=== PATIENT | female | born 2000 | race American Indian/Alaskan Native ===

== ENCOUNTER 2018-11-13 23:26 | Emergency (ER) | payer OTHER ==
--- NOTE | 2018-11-13 23:38 | Emergency Department Report ---
HPI - General Time Seen by Provider: 11/13/18 23:33 - HPI HPI: 18-year-old AA female presents to the emergency department via EMS from home after she passed out after having an emotional discussion with her boyfriend about moving about one hour away to [place]. The boyfriend noticed her coming down the stairs playing on her phone when she started passing out and slowly fell to the ground. Patient thinks that she might have hit her head and also complains of some right hip pain. The boyfriend says that she was unconscious for about 30 seconds and then it took about 5 minutes to get back to her normal mental status. He said he noticed a little bit of jerking of her legs while she was unconscious. No past medical history. She did not take anything for her symptoms prior to presentation. ED Review of Systems ROS: Stated complaint: SYNCOPE Other details as noted in HPI Comment: All other systems reviewed and negative Constitutional: denies: chills, fever Eyes: denies: eye pain, vision change ENT: denies: ear pain, throat pain Respiratory: denies: cough, shortness of breath Cardiovascular: syncope. denies: chest pain Gastrointestinal: denies: abdominal pain, vomiting Genitourinary: denies: dysuria, discharge Musculoskeletal: arthralgia. denies: back pain Skin: denies: rash, lesions Neurological: headache. denies: weakness Physical Exam - Physical Exam Physical Exam: GENERAL: The patient is well-developed well-nourished. HEENT: Normocephalic. Atraumatic. Patient has moist mucous membranes. EYES: Extraocular motions are intact. Pupils are equal and reactive to light bilaterally. No nystagmus. NECK: Supple. Trachea is midline. CHEST/LUNGS: Clear to auscultation. There is no respiratory distress noted. HEART/CARDIOVASCULAR: Regular. There is no tachycardia. There is no obvious murmur. ABDOMEN: Abdomen is soft, nontender. Patient has normal bowel sounds. There is no abdominal distention. SKIN: Skin is warm and dry. NEURO: The patient is awake, alert, and oriented. The patient is cooperative. The patient has no focal neurologic deficits. The patient has normal speech. Cranial nerves II through XII grossly intact. MUSCULOSKELETAL: There is no tenderness or deformity. There is no limitation range of motion. There is no evidence of acute injury. ED Medical Decision Making - Lab Data Result diagrams: 11/13/18 23:33 11/13/18 23:30 - EKG Data -: EKG Interpreted by Me EKG shows normal: sinus rhythm, axis, intervals, QRS complexes (q waves to anterior leads), ST-T waves Rate: normal - EKG Data When compared to previous EKG there are: previous EKG unavailable Interpretation: other (sinus rhythm, q waves to septal leads, no STEMI) - Radiology Data Radiology results: report reviewed, image reviewed interpreted by me: X-ray of the right hip does not show any fracture, dislocation or any acute process. PROCEDURE: CT HEAD/BRAIN WO CON TECHNIQUE: Computerized tomography of the head was performed without contrast material. HISTORY: Syncope COMPARISONS: None . FINDINGS: Skull and scalp: Normal . Paranasal sinuses: Normal . Ventricles and subarachnoid spaces: Normal . Cerebrum: No evidence of hemorrhage, acute infarction or mass . Cerebellum and brainstem: No evidence of hemorrhage, acute infarction or mass . Vasculature: Normal . Other: None . ASPECTS: 10 IMPRESSION: Normal Examination . This document is electronically signed by Tanya Long DO., November 14 2018 03:05:08 AM ET Transcribed By: [facility] Dictated By: TANYA LONG MD Electronically Authenticated By: TANYA LONG MD Signed Date/Time: 11/14/18 0307 - Medical Decision Making This patient presents to the emergency department after having some type of syncopal episode. Since being in the emergency department, she is awake and alert, oriented, and in no acute distress. She does not have any focal, motor or sensory deficits and her cranial nerves are intact. She complains of a mild headache and right hip pain. The right hip xray does not show any fracture, dislocation, or any other acute process. CT scan of the head does not show any bleed, shift, mass, ischemia, or any other acute process. EKG did not show any signs of ST elevation [place], ischemia or dysrhythmia. Labs are unremarkable including CBC, BMP, TSH, troponin. Prior to discharge, the patient was seen ambulatory in the emergency department and appears and feels stable. She has been given primary care referrals. She will return to the ER with any worsening of her symptoms or any acute distress. - Differential Diagnosis orthostatic hypotension, vasovagal, TIA, dysrythmia Critical Care Time: No Critical care attestation.: If time is entered above; I have spent that time in minutes in the direct care of this critically ill patient, excluding procedure time. ED Disposition Clinical Impression: Syncope Qualifiers: Syncope type: unspecified Qualified Code(s): R55 - Syncope and collapse Disposition: DC-01 TO HOME OR SELFCARE Is pt being admited?: No Condition: Stable Instructions: Syncope (ED) Additional Instructions: Please follow up with a primary care physician in the next few days. Return to the emergency Department with any further episodes of passing out, worsening of your symptoms or any acute distress. Referrals: [facility] [Outside] - 2-3 Days DAVID IBARRA MD [Staff Physician] - 2-3 Days Time of Disposition: 03:15
[2018-11-14 00:11] LABS: Hematocrit 36.9 % (30.3-42.9); Hemoglobin 12.2 gm/dl (10.1-14.3); Mean Corpuscular HGB Conc 33 % (30-34); Mean Corpuscular Volume 85 fl (79-97); Platelet Count 228 K/mm3 (140-440); Red Blood Count 4.33 M/mm3 (3.65-5.03); Red Cell Distribution Width 14.5 % (13.2-15.2)
[2018-11-14 01:22] LABS: BUN/Creatinine Ratio 11; Blood Urea Nitrogen 9 mg/dL (7-17)
[2018-11-14 01:23] LABS: Calcium 9.8 mg/dL (8.4-10.2)
[2018-11-14 02:17] LABS: Total Cells Counted 100
[2018-11-14 02:18] LABS: Anisocytosis 1+; Basophils % (Manual) 0 % (0.0-1.8); Large Platelets 1+; Platelet Estimate Consistent w Auto; Poikilocytosis 1+
--- NOTE | 2018-11-14 02:49 | XRay Report ---
PROCEDURE: XR HIP 2-3V RT TECHNIQUE: Right hip radiographs, 2 views. HISTORY: right hip pain COMPARISONS: None FINDINGS: Fracture (s) and/or Dislocation(s): None Joint space(s): Normal Soft tissues: Normal Bone mineralization: Normal Foreign bodies: None IMPRESSION: Normal Examination This document is electronically signed by Cecy Long DO., November 14 2018 02:47:25 AM ET
--- NOTE | 2018-11-14 03:07 | Cat Scan Report ---
PROCEDURE: CT HEAD/BRAIN WO CON TECHNIQUE: Computerized tomography of the head was performed without contrast material. HISTORY: Syncope COMPARISONS: None . FINDINGS: Skull and scalp: Normal . Paranasal sinuses: Normal . Ventricles and subarachnoid spaces: Normal . Cerebrum: No evidence of hemorrhage, acute infarction or mass . Cerebellum and brainstem: No evidence of hemorrhage, acute infarction or mass . Vasculature: Normal . Other: None . ASPECTS: 10 IMPRESSION: Normal Examination . This document is electronically signed by Cecy Long DO., November 14 2018 03:05:08 AM ET
[2018-11-14 04:44] LABS: Hemolysis Index 7
[2018-11-15 18:02] VITALS: BP 129/91
== END 2018-11-14 03:31 | disposition home or self-care (01) ==
LOC: ED 23:26
DX: R55 Syncope and collapse (principal); M25.551 Pain in right hip
CPT/HCPCS: 36415; 70450; 80048; 84443; 84484; 84703; 85007; 85025; 93005; 93010

== ENCOUNTER 2019-02-21 08:06 | Emergency (ER) | payer SELFPAY ==
--- NOTE | 2019-02-21 09:07 | Emergency Department Report ---
ED General Adult HPI - General Chief complaint: Eye Problems Stated complaint: LT EYE SWOLLEN Time Seen by Provider: 02/21/19 08:54 Source: patient Mode of arrival: Ambulatory Limitations: No Limitations - History of Present Illness Initial comments: She presents to the emergency department with a chief complaint of left eye swelling and itchiness. Patient denies fever or cold. - Related Data Previous Rx's Medication Instructions Recorded Last Taken Type Cetirizine HCl [Zyrtec 10mg tab] 10 mg PO DAILY #30 tablet 02/21/19 Unknown Rx Allergies Allergy/AdvReac Type Severity Reaction Status Date / Time No Known Allergies Allergy Unverified 11/13/18 23:36 ED Review of Systems ROS: Stated complaint: LT EYE SWOLLEN Other details as noted in HPI Constitutional: denies: chills, fever Eyes: denies: eye discharge, vision change ENT: denies: ear pain, throat pain Respiratory: denies: cough, shortness of breath, wheezing Cardiovascular: denies: chest pain, palpitations Endocrine: no symptoms reported Gastrointestinal: denies: abdominal pain, nausea, diarrhea Genitourinary: denies: urgency, dysuria, discharge Musculoskeletal: denies: back pain, joint swelling, arthralgia Skin: denies: rash, lesions Neurological: denies: headache, weakness, paresthesias Psychiatric: denies: anxiety, depression Hematological/Lymphatic: denies: easy bleeding, easy bruising ED Past Medical Hx - Past Medical History Previous Medical History?: No - Surgical History Past Surgical History?: No - Social History Smoking Status: Never Smoker Substance Use Type: Alcohol - Medications Home Medications: Home Medications Medication Instructions Recorded Confirmed Last Taken Type Cetirizine HCl [Zyrtec 10mg tab] 10 mg PO DAILY #30 tablet 02/21/19 Unknown Rx ED Physical Exam - General Limitations: No Limitations General appearance: alert, in no apparent distress - Head Head exam: Present: atraumatic, normocephalic - Eye Eye exam: Present: PERRL, EOMI, other ( cobblestone palpebral conjunctival; the patient also has a hordeolum of the upper left eyelid) - ENT ENT exam: Present: mucous membranes moist - Neck Neck exam: Present: normal inspection - Neurological Exam Neurological exam: Present: alert, oriented X3, CN II-XII intact - Skin Skin exam: Present: warm, dry, intact, normal color. Absent: rash ED Course Vital Signs 02/21/19 08:08 Temperature 98.1 F Pulse Rate 78 Respiratory 20 Rate Blood Pressure 125/86 O2 Sat by Pulse 96 Oximetry Critical care attestation.: If time is entered above; I have spent that time in minutes in the direct care of this critically ill patient, excluding procedure time. ED Disposition Clinical Impression: Hordeolum external, Allergic conjunctivitis Disposition: - TO HOME OR SELFCARE Is pt being admited?: No Does the pt Need Aspirin: No Condition: Stable Instructions: Stye (ED), Conjunctivitis (ED) Additional Instructions: return if worse Prescriptions: Cetirizine HCl [Zyrtec 10mg tab] 10 mg PO DAILY #30 tablet Referrals: ALMITA SCOTT MD [Primary Care Provider] - 3-5 Days [facility] [Provider Group] - 3-5 Days [facility] [Provider Group] - 3-5 Days Time of Disposition: 09:10
[2019-02-21 09:22] VITALS: BP 121/80
== END 2019-02-21 09:20 | disposition home or self-care (01) ==
LOC: ED 08:06
DX: H00.016 Hordeolum externum left eye, unspecified eyelid (principal); H10.12 Acute atopic conjunctivitis, left eye
CPT/HCPCS: 99282

== ENCOUNTER 2019-07-25 08:05 | Emergency (ER) | payer SELFPAY | END 2019-07-25 11:34 | disposition left against medical advice (07) | LOC: ED 08:05 | DX: R00.2 Palpitations (principal) | CPT/HCPCS: 99281 ==

== ENCOUNTER 2021-11-22 18:44 | Emergency (ER) | payer SELFPAY ==
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
[2021-11-22 21:08] VITALS: BP 120/80
== END 2021-11-22 21:10 | disposition home or self-care (01) ==
LOC: ED 18:44
DX: M25.561 Pain in right knee (principal); Z91.02 Food additives allergy status
CPT/HCPCS: 99282

== ENCOUNTER 2021-12-02 21:32 | Emergency (ER) | payer SELFPAY ==
--- NOTE | 2021-12-02 23:38 | XRay Report ---
RIGHT KNEE 4 VIEW(S) INDICATION / CLINICAL INFORMATION: pain - fall COMPARISON: None available. FINDINGS: BONES / JOINT(S): No acute fracture or subluxation. No significant arthritis. SOFT TISSUES: No significant abnormality. ADDITIONAL FINDINGS: None. IMPRESSION: 1.No evidence of acute osseous pathology. Signer Name: Nathan Valdez II, MD Signed: 12/02/2021 11:33 PM Workstation Name: [id number]
--- NOTE | 2021-12-03 01:46 | Emergency Department Report ---
ED Lower Extremity HPI - General Chief Complaint: Extremity Injury, Lower Stated Complaint: RT LEG INJURY Source: patient Mode of arrival: Ambulatory Limitations: No Limitations - History of Present Illness Initial Comments: Patient is a 21-year-old -Luxembourger female with no past medical history who presents to the ED with complaint of acute onset persistent right knee pain after she twisted her right knee and fell down 8 hours ago. Patient states that the pain is worse with any ambulation. Patient states that she tried to take hptd-nul-tyrodme medications with no relief. Patient denies dizziness, syncope, seizures, numbness and tingling or weakness of lower extremities bilaterally, low back pain, hip pain, chest pain, shortness of breath, headache, neck pain, change in vision abdominal pain. MD Complaint: knee injury (RIGHT) -: Sudden, hour(s) (8) Injury: Knee: Right (Right knee pain) Type of Injury: eversion Place: street/outdoors Improves With: nothing Worsens With: weight bearing, movement, palpation Context: fall, walking Associated Symptoms: snap/pop sensation, able to partially bear weight. denies: swelling, numbness, tingling, unable to bear weight, ambulatory - Related Data Previous Rx's Medication Instructions Recorded Last Taken Type Cetirizine HCl [Zyrtec 10mg tab] 10 mg PO DAILY #30 tablet 02/21/19 Unknown Rx Ibuprofen [Motrin] 600 mg PO Q8H PRN #20 tablet 11/22/21 Unknown Rx Ibuprofen [Motrin] 600 mg PO Q8H PRN #30 tablet 12/03/21 Unknown Rx Allergies Allergy/AdvReac Type Severity Reaction Status Date / Time coconut Allergy Mild Dizziness Verified 11/22/21 18:53 ED Review of Systems ROS: Stated complaint: RT LEG INJURY Other details as noted in HPI Constitutional: denies: chills, fever Eyes: denies: eye pain, eye discharge, vision change ENT: denies: ear pain, throat pain Respiratory: denies: cough, shortness of breath, wheezing Cardiovascular: denies: chest pain, palpitations Endocrine: no symptoms reported Gastrointestinal: denies: abdominal pain, nausea, diarrhea Genitourinary: denies: urgency, dysuria, discharge Musculoskeletal: arthralgia (Right knee pain). denies: back pain, joint swelling Skin: denies: rash, lesions Neurological: denies: headache, weakness, paresthesias Psychiatric: denies: anxiety, depression Hematological/Lymphatic: denies: easy bleeding, easy bruising ED Past Medical Hx - Social History Smoking Status: Never Smoker Substance Use Type: None - Medications Home Medications: Home Medications Medication Instructions Recorded Confirmed Last Taken Type Cetirizine HCl [Zyrtec 10mg tab] 10 mg PO DAILY #30 tablet 02/21/19 Unknown Rx Ibuprofen [Motrin] 600 mg PO Q8H PRN #20 tablet 11/22/21 Unknown Rx Ibuprofen [Motrin] 600 mg PO Q8H PRN #30 tablet 12/03/21 Unknown Rx ED Physical Exam - General Limitations: No Limitations General appearance: alert, in no apparent distress - Head Head exam: Present: atraumatic, normocephalic, normal inspection - Eye Eye exam: Present: normal appearance, PERRL, EOMI Pupils: Present: normal accommodation - ENT ENT exam: Present: normal exam, normal orophraynx, mucous membranes moist, TM's normal bilaterally, normal external ear exam - Neck Neck exam: Present: normal inspection, full ROM. Absent: tenderness - Respiratory Respiratory exam: Present: normal lung sounds bilaterally. Absent: respiratory distress, wheezes, rhonchi, stridor, chest wall tenderness, accessory muscle use, decreased breath sounds, prolonged expiratory - Cardiovascular Cardiovascular Exam: Present: regular rate, normal rhythm, normal heart sounds. Absent: systolic murmur, diastolic murmur, rubs, gallop - GI/Abdominal GI/Abdominal exam: Present: soft, normal bowel sounds. Absent: tenderness, guarding, rebound, hyperactive bowel sounds, hypoactive bowel sounds, mass - Extremities Exam Extremities exam: Present: normal inspection, tenderness (Palpable right knee tenderness with limited range of motion due to pain), normal capillary refill. Absent: full ROM (Limited range of motion of right knee due to pain), pedal edema, joint swelling, calf tenderness - Back Exam Back exam: Present: normal inspection, full ROM. Absent: tenderness, CVA tenderness (L), muscle spasm, paraspinal tenderness - Neurological Exam Neurological exam: Present: alert, oriented X3, CN II-XII intact, normal gait, reflexes normal - Psychiatric Psychiatric exam: Present: normal affect, normal mood - Skin Skin exam: Present: warm, dry, intact, normal color. Absent: rash ED Course Vital Signs 12/02/21 22:44 Temperature 98.8 F Pulse Rate 71 Respiratory 18 Rate Blood Pressure 148/94 O2 Sat by Pulse 100 Oximetry ED Lower Extremity MDM - Radiology Data Radiology results: report reviewed, image reviewed [facility] [address] [place] [address] XRay Report Signed Patient: AMANDA PALMER MR#: [id number] : 2000 Acct:[id number] Age/Sex: 21 / F ADM Date: 12/02/21 Loc: ED Attending Dr: Ordering Physician: CHAVEZ DIEGO Date of Service: 12/02/21 Procedure(s): XR knee 3V RT Accession Number(s): [id number] cc: CHAVEZ DIEGO Fluoro Time In Minutes: RIGHT KNEE 4 VIEW(S) INDICATION / CLINICAL INFORMATION: pain - fall COMPARISON: None available. FINDINGS: BONES / JOINT(S): No acute fracture or subluxation. No significant arthritis. SOFT TISSUES: No significant abnormality. ADDITIONAL FINDINGS: None. IMPRESSION: 1.No evidence of acute osseous pathology. Signer Name: Rigo Valdez II, MD Signed: 12/02/2021 11:33 PM Workstation Name: [id number] Transcribed By: BERNARDINO Dictated By: RIGO VALDEZ II, MD Electronically Authenticated By: RIGO VALDEZ II, MD Signed Date/Time: 12/02/212332 DD/ 32 TD/TT: - Medical Decision Making This is a 21-year-old -Luxembourger female with no past medical history who presents to the ED with complaint of acute onset persistent right knee pain after she twisted her right knee and fell down 8 hours ago. Patient states that the pain is worse with any ambulation. Patient states that she tried to take [id number]-[id number] medications with no relief. In the ED, patient is alert and oriented x3 and is not in any distress. Right knee x-ray showed no acute fractures or subluxations. Patient symptoms are likely musculoskeletal and therefore the patient will discharge home on medications for pain and advised to follow-up with her primary care physician in 7 to 10 days for reevaluation. Patient advised return to the ED immediately if symptoms get worse. - Differential Diagnosis Knee fracture; knee sprain; knee contusion; muscle strain Critical care attestation.: If time is entered above; I have spent that time in minutes in the direct care of this critically ill patient, excluding procedure time. ED Disposition Clinical Impression: Sprain of right knee Qualifiers: Encounter type: initial encounter Involved ligament of knee: unspecified ligament Qualified Code(s): S83.91XA - Sprain of unspecified site of right knee, initial encounter Muscle strain of right knee Qualifiers: Encounter type: initial encounter Qualified Code(s): S86.911A - Strain of unspecified muscle(s) and tendon(s) at lower leg level, right leg, initial encounter Contusion of right knee Qualifiers: Encounter type: initial encounter Qualified Code(s): S80.01XA - Contusion of right knee, initial encounter Disposition: 01 HOME / SELF CARE / HOMELESS Is pt being admited?: No Does the pt Need Aspirin: No Condition: Stable Instructions: Contusion, Kpyd-ho-Xkjy, Knee Sprain, Adult, Slry-rb-Zwoh, Muscle Strain, Nzkt-bq-[id number] Additional Instructions: The right knee x-ray showed no acute fractures or subluxations. Therefore take medication with food, drink plenty of fluids and follow-up with your primary care physician in 7 to 10 days for reevaluation. Return to the ED immediately if symptoms get worse. Prescriptions: Ibuprofen [Motrin] 600 mg PO Q8H PRN #30 tablet PRN Reason: Pain Referrals: [facility] [Provider Group] - 7-10 days Forms: Work/School Release Form(ED) Time of Disposition: 01:47 Print Language: UKRAINIAN
[2021-12-03 06:02] VITALS: BP 141/92
== END 2021-12-03 02:21 | disposition home or self-care (01) ==
LOC: ED 21:32
DX: S83.91XA Sprain of unspecified site of right knee, initial encounter (principal); X58.XXXA Exposure to other specified factors, initial encounter; Y93.89 Activity, other specified; Y92.89 Other specified places as the place of occurrence of the external cause; Y99.8 Other external cause status
CPT/HCPCS: 99283

== ENCOUNTER 2022-01-03 11:33 | Emergency (ER) | payer SELFPAY ==
[2022-01-03 12:13] VITALS: BP 142/99
== END 2022-01-03 20:45 | disposition left against medical advice (07) ==
LOC: ED 11:33
DX: R07.9 Chest pain, unspecified (principal); Z53.21 Procedure and treatment not carried out due to patient leaving prior to being seen by health care provider